=== PATIENT | female | born 1945 | race African-American/Black ===

== ENCOUNTER 2018-04-09 09:29 | Emergency (ER) | payer MEDICARE, MEDICAID ==
[~2018-04-09] VITALS: Ht 167.6 cm; Wt 60.0 kg
[2018-04-09] MEDS ORDERED: ACETAMINOPHEN 325MG TABLET PO STA (09:44)
[2018-04-09] MEDS ORDERED: SODIUM CHLORIDE 0.9% 1000ML BAG (SEPSIS BOLUS) IV ONE (09:45)
[2018-04-09 10:16] LABS: BASOPHILS % 0.8 % (0.0-2.0); EOSINOPHILS % 4.4 % (0.0-5.0); HEMATOCRIT. 31.3 % (36.0-48.0); HEMOGLOBIN. 10.6 g/dL (12.0-16.0); LYMPHOCYTES % 21.4 % (20.0-50.0); MEAN CORPUSCULAR HEMOGLOBIN 34.7 pg (28.0-32.0); MEAN CORPUSCULAR VOLUME 101.9 fL (81.0-99.0); MONOCYTES % 7.8 % (2.0-8.0); NEUTROPHILS % 65.6 % (40.0-76.0); PLATELET 327 x1000/uL (130-400); RED BLOOD CELL COUNT 3.07 mill/uL (4.2-5.4); RED CELL DISTRIBUTION WIDTH 15.5 % (11.6-14.6)
[2018-04-09 10:19] LABS: CLARITY URINE CLEAR (CLEAR); COLOR URINE YELLOW (YELLOW); KETONES URINE 1+ (NEGATIVE); LEUKOCYTE ESTERASE URINE 2+ (NEGATIVE); NITRITE URINE NEGATIVE (NEGATIVE); OCCULT BLOOD URINE 3+ (NEGATIVE); PROTEIN URINE 1+ (NEGATIVE); SPECIFIC GRAVITY URINE 1.025 (1.005-1.030)
[2018-04-09 10:22] LABS: CHLORIDE 108 mEq/L (98-107)
[2018-04-09 10:24] LABS: INR 1.1; PROTHROMBIN TIME 11.4 sec (9.4-11.6)
[2018-04-09 11:32] VITALS: BP 123/70
[2018-04-09] MEDS ORDERED: AZITHROMYCIN 500 MG in DEXT 5% WATER 250 ML IV ONE (12:00)
[2018-04-09] MEDS ORDERED: CEFTRIAXONE 1 G PREMIX 50 ML IV ONE (12:00)
== END 2018-04-09 12:04 | disposition left against medical advice (07) ==
LOC: ER 10:06 → CANBEDREQ 17:16
DX: J18.9 Pneumonia, unspecified organism (principal); N39.0 Urinary tract infection, site not specified; I10 Essential (primary) hypertension; I25.2 Old myocardial infarction; R73.03 Prediabetes; I69.351 Hemiplegia and hemiparesis following cerebral infarction affecting right dominant side; Z99.3 Dependence on wheelchair; Z90.710 Acquired absence of both cervix and uterus; Z93.0 Tracheostomy status
CPT/HCPCS: 36415; 71045; 74176; 80053; 81003; 82962; 83605; 83880; 84484; 85025; 85610; 87040; 87086; 93005; 99285; J7030; J7040; J0456; J7060

== ENCOUNTER 2018-04-24 11:12 | Emergency (ER) | payer MEDICARE, MEDICAID ==
[~2018-04-24] VITALS: Ht 167.6 cm; Wt 55.0 kg
[2018-04-24 13:05] LABS: EOSINOPHILS % 6.2 % (0.0-5.0); HEMATOCRIT. 34.8 % (36.0-48.0); HEMOGLOBIN. 11.9 g/dL (12.0-16.0); LYMPHOCYTES % 38.5 % (20.0-50.0); MEAN CORPUSCULAR HEMOGLOBIN 34.8 pg (28.0-32.0); MEAN CORPUSCULAR VOLUME 102.1 fL (81.0-99.0); MEAN PLATELET VOLUME 7.9 fl (7.4-10.4); NEUTROPHILS % 45.3 % (40.0-76.0); PLATELET 269 x1000/uL (130-400); RED BLOOD CELL COUNT 3.41 mill/uL (4.2-5.4); RED CELL DISTRIBUTION WIDTH 16.4 % (11.6-14.6)
[2018-04-24 13:07] LABS: INR 1.1; PROTHROMBIN TIME 11.7 sec (9.4-11.6)
[2018-04-24 13:11] LABS: CHLORIDE 103 mEq/L (98-107)
[2018-04-24] MEDS: ACETAMINOPHEN 325MG TABLET PO ONE (14:23)
[2018-04-24 14:52] VITALS: BP 121/73
[2018-04-24] MEDS: BISACODYL 5MG TABLET PO ONE (14:52)
[2018-04-24 15:49] LABS: HEPATITIS B SURFACE ANTIGEN NEGATIVE
[2018-04-24 16:15] LABS: HEPATITIS B CORE AB IGM NEGATIVE
[2018-04-24 16:16] LABS: HEPATITIS A AB IGM NEGATIVE (NEGATIVE)
== END 2018-04-24 14:56 | disposition home or self-care (01) ==
LOC: ER 12:15
DX: K59.00 Constipation, unspecified (principal); E86.0 Dehydration; D72.819 Decreased white blood cell count, unspecified; R01.1 Cardiac murmur, unspecified; D53.9 Nutritional anemia, unspecified; D72.821 Monocytosis (symptomatic); H57.8 Other specified disorders of eye and adnexa; D72.1 Eosinophilia; E83.41 Hypermagnesemia; R74.0 Nonspecific elevation of levels of transaminase and lactic acid dehydrogenase [LDH]; J98.11 Atelectasis; E11.21 Type 2 diabetes mellitus with diabetic nephropathy; I10 Essential (primary) hypertension; N17.0 Acute kidney failure with tubular necrosis; I25.2 Old myocardial infarction; Z86.73 Personal history of transient ischemic attack (TIA), and cerebral infarction without residual deficits; Z93.0 Tracheostomy status; Z87.440 Personal history of urinary (tract) infections
CPT/HCPCS: 36415; 71045; 74176; 80053; 83036; 83605; 83735; 83880; 84484; 85025; 85610; 86705; 86709; 86803; 87040; 87340; 93005; 99285